=== PATIENT | female | born 1970 | race Caucasian/White ===

== ENCOUNTER → 2022-03-17 13:50 | Outpatient (BNVA) | payer OTHER, SELFPAY | PROVIDERS: Visit Provider Physician Assistant | DX: M23.91 Unspecified internal derangement of right knee (principal) | CPT/HCPCS: 73564; 99204 ==

== ENCOUNTER → 2022-03-22 15:29 | Outpatient (BNVA) | payer OTHER, SELFPAY | PROVIDERS: Visit Provider Internal Medicine | DX: M23.91 Unspecified internal derangement of right knee (principal) | CPT/HCPCS: 99214 ==

== ENCOUNTER → 2022-03-31 15:01 | Outpatient (BNVA) | payer OTHER, SELFPAY | PROVIDERS: Visit Provider Internal Medicine | DX: M23.91 Unspecified internal derangement of right knee (principal) | CPT/HCPCS: 99213 ==

== ENCOUNTER 2022-04-05 10:10 | Outpatient (REF) | payer OTHER, SELFPAY ==
--- NOTE | ~2022-04-05 | MR_ITS ---
EXAMINATION: MR KNEE WITHOUT CONTRAST, RIGHT CLINICAL INFORMATION: Twisting injury, medial and lateral pain. COMPARISON: X-ray 03/17/2022 TECHNIQUE: MRI of the knee without contrast was performed using routine sequences on a high-field scanner. FINDINGS: MENISCI: Medial Meniscus: Inner margin degenerative fraying/tear of the posterior horn. Otherwise intact. Lateral Meniscus: Superior surface tear in the body with a meniscal flap displaced superiorly into the meniscofemoral recess. Undersurface fraying and tear of the anterior horn.. LIGAMENTS: Cruciate: T2 signal in ACL likely reflecting mucoid degeneration. PCL is intact. Collateral: Intact EXTENSOR MECHANISM: Intact ARTICULAR CARTILAGE/BONE: Patellofemoral Compartment: Mild lateral patellar subluxation. Area of cartilage thinning and fissuring in the medial trochlea. Medial Compartment: Scattered areas of cartilage thinning and fissuring in the weightbearing femur. Cartilage thinning in the medial aspect of the compartment. Lateral Compartment: Scattered areas of cartilage thinning and fissuring in the weightbearing femur. Cartilage thinning of the posterior tibia. No fracture. JOINT FLUID AND BURSAE: Small effusion. Cystic focus associated with the proximal medial gastrocnemius tendon, probable ganglion cyst. Small cystic focus deep to the proximal fibula, probable ganglion cyst. Subcutaneous edema anteriorly. MR/MR knee RT wo con IMPRESSION: 1. Tear of the body of the lateral meniscus, with a meniscal flap displaced superiorly into the meniscofemoral recess. Undersurface fraying and tear of the anterior horn. 2. Inner margin degenerative fraying/tear of the posterior horn of the medial meniscus. 3. Mucoid degeneration ACL. 4. Mild tricompartment arthritis. 5. Small effusion. 6. Probable ganglion cysts associated with the proximal medial gastrocnemius tendon and deep to the proximal fibula.
== END 2022-04-05 10:11 | disposition home or self-care (01) ==
LOC: HO.MRI 10:10
PROVIDERS: Visit Provider Internal Medicine
DX: M25.561 Pain in right knee (principal)
CPT/HCPCS: 73721

== ENCOUNTER → 2022-04-08 11:01 | Outpatient (BNVA) | payer OTHER, SELFPAY | PROVIDERS: Visit Provider Internal Medicine | DX: M23.300 Other meniscus derangements, unspecified lateral meniscus, right knee (principal) | CPT/HCPCS: 99214 ==